=== PATIENT | male | born 1985 | race Caucasian/White ===

== ENCOUNTER 2019-07-03 08:40 | Emergency (ER) | payer OTHER ==
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
[2019-07-03] MEDS: Ibuprofen 800 MG Tab PO ONE (09:57)
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
[2019-07-03 11:24] VITALS: BP 170/109; PULSE 73
== END 2019-07-03 10:45 | disposition home or self-care (01) ==
LOC: FB.ED 08:40
DX: S13.4XXA Sprain of ligaments of cervical spine, initial encounter (principal); I10 Essential (primary) hypertension; V59.40XA Driver of pick-up truck or van injured in collision with unspecified motor vehicles in traffic accident, initial encounter; Y92.410 Unspecified street and highway as the place of occurrence of the external cause
CPT/HCPCS: 72050; 99284; A9270

== ENCOUNTER 2025-03-15 19:42 | Emergency (ER) | payer OTHER ==
[2025-03-15] MEDS: Sodium Chloride 0.9% 1,000 ML IV ONE (19:50)
[2025-03-15 20:21] LABS: HEMOGLOBIN 11.3 g/dL (12.9-17.7); LYMPHOCYTES ABSOLUTE AUTO 1.3 x10-3/uL (0.5-4.5); MONOCYTES ABSOLUTE AUTO 0.3 x10-3/uL (0.0-1.2); NEUTROPHILS ABSOLUTE AUTO 1.1 x10-3/uL (1.7-6.9); RED BLOOD CELL COUNT 3.19 x10(6)uL (3.90-5.90); WHITE BLOOD CELL COUNT,WBC 2.7 x10-3/uL (3.2-10.1)
[2025-03-15 20:24] LABS: BLOOD UREA NITROGEN,BUN 7 mg/dL (7-18); BUN/CREATININE RATIO 5.8 (9-20); CALCIUM 7.4 mg/dL (8.6-10.2); CARBON DIOXIDE,CO2 25 mmol/L (21-32); CHLORIDE,CL 102 mmol/L (100-110); CREATININE 1.2 mg/dL (0.70-1.30); ESTIMATED GFR 79 mL/min (>60); GLUCOSE RANDOM 129 mg/dL (80-116); POTASSIUM,K 3.1 mmol/L (3.5-5.3); SODIUM,NA 134 mmol/L (135-145)
[2025-03-15 20:28] LABS: EOSINOPHILS PERCENT AUTO 1.6 % (0.1-6.8); HEMATOCRIT 32.2 % (38.3-50.1); LYMPHOCYTES PERCENT AUTO 47.4 % (15.8-45.3); MEAN CORPUSCULAR HEMOGLOBIN 35.3 pg (27.0-33.3); MEAN PLATELET VOLUME 7.9 fL (6.7-11.0); RED CELL DISTRIBUTION WIDTH 14.1 % (12.4-15.0)
[2025-03-15 20:35] LABS: A/G RATIO 0.6; ALKALINE PHOSPHATASE 188 IU/L (56-112); BILIRUBIN TOTAL 1.1 mg/dL (0.1-1.3); PROTEIN TOTAL,TP 5.6 g/dL (6.0-8.0)
[2025-03-15 20:36] LABS: ALANINE AMINOTRANSFERASE,ALT 175 U/L (12-36)
[2025-03-15 20:37] LABS: ASPARTATE AMNIOTRANSFERASE,AST 249 IU/L (5-25)
[2025-03-15 20:43] LABS: PLATELET COUNT,PLT 35 x10(3)uL (117-477)
[2025-03-15] MEDS: Thiamine 200 MG/2 ML MDV IVPUSH ONE (21:14)
[2025-03-15] MEDS: LORazepam 2 MG/ML SDV IVPUSH ONE (21:14)
[2025-03-15 21:43] VITALS: PULSE 118
[2025-03-15 22:36] VITALS: BP 103/75
== END 2025-03-15 22:14 | disposition home or self-care (01) ==
LOC: FB.ED 19:42
DX: S01.01XA Laceration without foreign body of scalp, initial encounter (principal); F10.120 Alcohol abuse with intoxication, uncomplicated; I10 Essential (primary) hypertension; D69.6 Thrombocytopenia, unspecified; Y90.9 Presence of alcohol in blood, level not specified; W01.198A Fall on same level from slipping, tripping and stumbling with subsequent striking against other object, initial encounter; Y93.89 Activity, other specified
CPT/HCPCS: 12002; 36415; 70450; 72125; 80053; 80307; 83605; 84484; 85025; 86850; 86900; 86901; 96361; 96374; 96375; 99285; J2060; J3411; J7030